=== PATIENT | male | born 1980 | race American Indian/Alaskan Native ===

== ENCOUNTER 2016-12-16 10:21 | Inpatient (IN) | payer OTHER ==
[2016-12-16 11:13] LABS: Basophils % (Auto) 0.5 % (0.0-1.8); Eosinophils % (Auto) 0.4 % (0.0-4.3); Hematocrit 49.8 % (35.5-45.6); Hemoglobin 16.4 gm/dl (11.8-15.2); Mean Corpuscular HGB Conc 33 % (32-34); Mean Corpuscular Hemoglobin 28 pg (28-32); Mean Corpuscular Volume 85 fl (84-94); Platelet Count 294 K/mm3 (140-440); Red Blood Count 5.89 M/mm3 (3.65-5.03); White Blood Count 11.3 K/mm3 (4.5-11.0)
[2016-12-16 11:30] LABS: Anion Gap 29 mmol/L; BUN/Creatinine Ratio 12.72; Blood Urea Nitrogen 14 mg/dL (9-20); Calcium 9.8 mg/dL (8.4-10.2); Carbon Dioxide 20 mmol/L (22-30); Chloride 82.5 mmol/L (98-107); Potassium 5.1 mmol/L (3.6-5.0); Sodium 126 mmol/L (137-145)
[2016-12-16] MEDS ORDERED: NACL 0.9% 1000 ML 1,000 ML IV ONE ×2 (11:50→14:01)
[2016-12-16 12:01] LABS: Glucose 777 mg/dL (75-100)
--- NOTE | 2016-12-16 12:08 | Emergency Department Report ---
HPI - General Chief Complaint: Chest Pain Time Seen by Provider: 12/16/16 11:47 - HPI HPI: This is a 36-year-old Afro-K[place] male who presents to the emergency department with complaint of some generalized weakness, frequent urination, increased thirst, palpitations and fatigue over the past few days. He complains of an occasional midsternal burning sensation but otherwise denies any significant pain. He denies any soreness of breath, nausea, vomiting, back pain or diaphoresis. He does not have any past medical history. Patient does have a history of weight loss with 35 pounds lost over the past few months but he equates it to quitting alcohol use. He denies any tobacco or illicit drug use or abuse. ED Past Medical Hx - Past Medical History Previous Medical History?: No - Surgical History Past Surgical History?: No - Social History Smoking Status: Never Smoker Substance Use Type: Alcohol - Medications Home Medications: Home Medications Medication Instructions Recorded Confirmed Last Taken Type Cyclobenzaprine [Flexeril 10mg] 10 mg PO TID PRN #20 tablet 02/03/15 Unknown Rx Ibuprofen [Motrin] 600 mg PO Q8H PRN #30 tablet 02/03/15 Unknown Rx ED Review of Systems ROS: Stated complaint: CHEST PAIN Other details as noted in HPI Comment: All other systems reviewed and negative Constitutional: weakness. denies: chills, fever Eyes: denies: eye pain, eye discharge, vision change ENT: denies: ear pain, throat pain Respiratory: denies: cough, shortness of breath, wheezing Cardiovascular: chest pain, palpitations. denies: edema Endocrine: increased thirst, increased urine Gastrointestinal: denies: abdominal pain, nausea, diarrhea Genitourinary: frequency. denies: dysuria Musculoskeletal: denies: back pain, joint swelling, arthralgia Skin: denies: rash, lesions Neurological: denies: headache, weakness, paresthesias Physical Exam - Physical Exam Vital Signs: Vital Signs 12/16/16 12/16/16 10:36 11:59 Temperature 98.0 F Pulse Rate 115 H Respiratory 18 18 Rate Blood Pressure 156/115 O2 Sat by Pulse 98 Oximetry Physical Exam: GENERAL: The patient is well-developed well-nourished. HEENT: Normocephalic. Atraumatic. Extraocular motions are intact. Patient has moist mucous membranes. Pupils equal reactive to light bilaterally. NECK: Supple. Trachea is midline. CHEST/LUNGS: Clear to auscultation. There is no respiratory distress noted. HEART/CARDIOVASCULAR: Regular. There is no tachycardia. There is no gallop rub or murmur. ABDOMEN: Abdomen is soft, nontender. Patient has normal bowel sounds. There is no abdominal distention. SKIN: There is no rash. There is no edema. There is no diaphoresis. NEURO: The patient is awake, alert, and oriented. The patient is cooperative. The patient has no focal neurologic deficits. The patient has normal speech. MUSCULOSKELETAL: There is no tenderness or deformity. There is no limitation range of motion. There is no evidence of acute injury. ED Course Vital Signs 12/16/16 12/16/16 10:36 11:59 Temperature 98.0 F Pulse Rate 115 H Respiratory 18 18 Rate Blood Pressure 156/115 O2 Sat by Pulse 98 Oximetry ED Medical Decision Making - Lab Data Result diagrams: 12/16/16 10:51 12/16/16 13:44 - EKG Data -: EKG Interpreted by Me EKG shows normal: sinus rhythm, axis, intervals, QRS complexes, ST-T waves (T- wave inversions to the inferior leads) Rate: tachycardia (109 bpm) - EKG Data When compared to previous EKG there are: previous EKG unavailable Interpretation: other (sinus tachycardia, T-wave inversions to the inferior leads) - Radiology Data Radiology results: image reviewed interpreted by me: Chest x-ray did not show any acute process. Heart is normal shape and size. No effusions. No pneumothorax. No signs of pneumonia seen. - Medical Decision Making 36-year-old male presents to the emergency department with complaint of polyuria , polydipsia, chest pains, weakness and fatigue. Found to have a blood sugar of almost 800. Other labs show hyponatremia due to his hyperosmolality/ hyperglycemia, beta hydroxybutyrate of greater than 30, bicarbonate of 20. While venous pH is on the low area of normal, I believe the patient has some early diabetic ketoacidosis in a patient with new onset diabetes mellitus. Patient was given IV fluid resuscitation and his blood sugar started to come down. The patient will be placed on a insulin drip to lower his gap and we will continue to give him IV fluid resuscitation. Regarding his chest pain, patient had an EKG that does not show any signs of ST elevation ID. First troponin negative. I have spoken to the admitting hospitalist, dr Garcia, who will either admit the patient for further evaluation and treatment or will consult and discharge if he deems fit. - Differential Diagnosis DKA, HHNK, ID, CHF Critical Care Time: No Critical care attestation.: If time is entered above; I have spent that time in minutes in the direct care of this critically ill patient, excluding procedure time. ED Disposition Clinical Impression: Diabetes mellitus, new onset Diabetic ketoacidosis Qualifiers: Diabetes mellitus type: other specified (including JHONATAN) Diabetes mellitus complication detail: without coma Qualified Code(s): E13.10 - Other specified diabetes mellitus with ketoacidosis without coma Hypertension Qualifiers: Hypertension type: essential hypertension Qualified Code(s): I10 - Essential ( primary) hypertension Disposition: OP ADMITTED IP TO THIS HOSP Is pt being admited?: Yes Does the pt Need Aspirin: Yes Condition: Stable Instructions: Diabetic Ketoacidosis (ED), Hypertension (ED) Referrals: PRIMARY CARE, [Primary Care Provider] - 3-5 Days Time of Disposition: 14:34
--- NOTE | 2016-12-16 13:15 | XRay Report ---
Chest 2 views: History: Chest pain. Findings: Normal cardiomediastinal silhouette. No consolidation, pneumothorax or pleural effusion. Impression: No acute cardiopulmonary findings.
[2016-12-16] MEDS ORDERED: D50W (25GM) IV PRN ×2 (13:39→15:16)
[2016-12-16] MEDS ORDERED: NovoLIN R 100 UNITS in NACL 0.9% 99 ML IV SCH (14:00)
[2016-12-16 14:06] LABS: Anion Gap 28 mmol/L; BUN/Creatinine Ratio 13.33; Blood Urea Nitrogen 12 mg/dL (9-20); Carbon Dioxide 16 mmol/L (22-30); Chloride 87.7 mmol/L (98-107); Potassium 4.5 mmol/L (3.6-5.0); Sodium 127 mmol/L (137-145)
[2016-12-16 14:33] LABS: Magnesium 2.3 mg/dL (1.7-2.3); Phosphorous 4.8 mg/dL (2.5-4.5)
[2016-12-16 14:34] LABS: Glucose 525 mg/dL (75-100)
[2016-12-16] MEDS ORDERED: BABY ASPIRIN PO ONE (14:34)
[2016-12-16] MEDS ORDERED: ZOFRAN IV PRN (15:15)
[2016-12-16] MEDS ORDERED: NORCO 5/325 PO PRN (15:15)
[2016-12-16] MEDS ORDERED: AMBIEN PO PRN (15:15)
[2016-12-16] MEDS ORDERED: TYLENOL PO PRN (15:15)
[2016-12-16] MEDS: NOVOLOG SUB-Q SCH ×2 (16:03→23:00)
[2016-12-16] MEDS ORDERED: BABY ASPIRIN ONE (16:36)
[2016-12-16 16:48] LABS: Anion Gap 30 mmol/L; Blood Urea Nitrogen 12 mg/dL (9-20); Carbon Dioxide 16 mmol/L (22-30); Chloride 93.1 mmol/L (98-107); Glucose 369 mg/dL (75-100); Potassium 5.4 mmol/L (3.6-5.0); Sodium 134 mmol/L (137-145)
[2016-12-16] MEDS ORDERED: NACL 0.9% 1000 ML 1,000 ML ONE (17:47)
[2016-12-16] MEDS: NACL 0.9% 1000 ML 1,000 ML IV SCH (18:11)
--- NOTE | 2016-12-16 18:27 | History and Physical Report ---
History of Present Illness Date of examination: 12/16/16 Date of admission: 12/16/16 17:18 Chief complaint: Weakness History of present illness: Patient is a 36 yo man without chronic medical problems who presents with 3-4 day history of weakness, fatigue, polyuria, polydipsia, polyphagia and substernal mild intermittent nonradiating chest pain that began 3-4 days ago. The chest pain felt like indigestion even taking aspirin with relief. Past History Past Medical History: other (as hpi) Past Surgical History: No surgical history Social history: full code, other (cocaine in the past). denies: smoking, alcohol abuse, prescription drug abuse, IV drug use Family history: hypertension (mother), other (father gout) Medications and Allergies Allergies Allergy/AdvReac Type Severity Reaction Status Date / Time No Known Allergies Allergy Verified 02/03/15 08:35 Home Medications Medication Instructions Recorded Confirmed Last Taken Type Cyclobenzaprine [Flexeril 10mg] 10 mg PO TID PRN #20 tablet 02/03/15 Unknown Rx Ibuprofen [Motrin] 600 mg PO Q8H PRN #30 tablet 02/03/15 Unknown Rx Active Meds: Active Medications Acetaminophen (Tylenol) 650 mg PO Q6H PRN PRN Reason: Non Cardiac Pain or Temp>100.5 Acetaminophen/Hydrocodone Bitart ([place] 5/325) 1 each PO Q4H PRN PRN Reason: Pain, Moderate (4-6) Dextrose (D50w (25gm)) 50 ml IV PRN PRN PRN Reason: Hypoglycemia Heparin Sodium (Porcine) (Heparin) 5,000 unit SUB-Q Q12HR [facility] Sodium Chloride (Nacl 0.9% 1000 Ml) 1,000 mls @ 125 mls/hr IV DIRECT [facility] Last Admin: 12/16/16 18:11 Dose: 125 mls/hr Insulin Aspart (Novolog) 0 units SUB-Q ACHS ELI PRN Reason: Protocol Last Admin: 12/16/16 16:03 Dose: 6 units Insulin Detemir (Levemir) 10 units SUB-Q QHS ELI Ondansetron HCl (Zofran) 4 mg IV Q4H PRN PRN Reason: Nausea And Vomiting Pantoprazole Sodium (Protonix) 40 mg PO QDAY [facility] Zolpidem Tartrate (Ambien) 5 mg PO QHS PRN PRN Reason: Sleep Exam - Constitutional Vitals: Temp Pulse Resp BP Pulse Ox 98.0 F 92 H 18 163/89 100 12/16/16 10:36 12/16/16 16:22 12/16/16 16:22 12/16/16 16:22 12/16/16 16:22 Results - Labs CBC & Chem 7: 12/16/16 10:51 12/16/16 15:58 Assessment and Plan Patient is a 36 yo man without chronic medical problems who presents with 3-4 day history of weakness, fatigue, polyuria, polydipsia, polyphagia and substernal mild intermittent nonradiating chest pain that began 3-4 days ago. The chest pain felt like indigestion even taking aspirin with relief. He also complains of unintentional weight loss 4 months. 1. New-onset diabetes mellitus borderline acidotic with ketones in the blood 2. Chest pain suspect GERD related: Treat with PPI, serial cardiac enzymes and stress test in a.m. 3. Electrolyte Imbalances, mild hyperkalemia and pseudohyponatremia
[2016-12-16] MEDS: LEVEMIR SUB-Q SCH (23:00)
--- NOTE | 2016-12-17 00:03 | Admit Criteria Form ---
Admission Criteria Documentation: DIABETES Clinical Indications for Admission to Inpatient Care (Place 'X' for any and all applicable criteria): Admission is indicated by presence of ALL (if I & II) or ANY ONE (if III or IV) of the following (1)(2)(3)(4): [ ]I. Diabetes is uncontrolled as indicated by ANY ONE of the following: [ ]a) Diabetic ketoacidosis as indicated by ALL of the following (8): [ ]i) Hyperglycemia (eg, plasma glucose greater than 200 mg/ dL (11.1 mmol/L)) [ ]ii) Acidosis (eg, arterial pH less than 7.30, serum bicarbonate level less than 15 mEq/L (mmol/L)) [ ]iii) Moderate ketonuria or ketonemia [ ]b) Hyperglycemic hyperosmolar state as indicated by ALL of the following(9)(10): [ ]i) Neurologic dysfunction (eg, stupor, coma, hemiparesis , seizure)(13) [ ]ii) Plasma glucose greater than 600 mg/dL (33.3 mmol/L) [ ]iii) Serum osmolality greater than 320 mOsm/kg (mmol/kg) [ ]c) Severe signs or symptoms secondary to hyperglycemia indicated by ANY ONE of the following: [ ]i) Altered mental status(10) [ ]ii) Significant hypovolemia or dehydration [ ]iii) Intractable nausea or vomiting [ ]iv) Unexplained fever or severe infection [ ]v) Severe electrolyte abnormality (eg, hypokalemia, hyperkalemia, hypernatremia) [ ]II. Management at other levels of care (Also use Diabetes: Observation Care as appropriate) is not feasible because of ANY ONE of the following: [ ]a) Condition was not adequately corrected with treatment at other levels of care. [ ]b) Treatment at other levels of care is not appropriate because of condition severity (eg, hyperosmolar coma). [X ]III. Contraindications and/or Inappropriate clinical situations for Observational Care in patients with Diabetes, when ANY ONE of the following is required: [ ]a) Patient require specific diagnostic workup or therapeutic intervention 22 [X ]b) Patient with abnormal vital signs or altered mental status 23 [ X]IV. General contraindications and/or Inappropriate clinical situations for Observational Care in patients with Diabetes, when ANY ONE of the following is required: [X ]a) Prediction of prolongation of LOS based on ANY ONE of the following may be considered as a contraindication for observational care 2, 3, 4, 5, 6, 7, 8, 9, 10, 11 [ ]i) Age > 65 yrs. [ ]ii) Patient arriving by ambulance [ ]iii) Patient with high acuity [X ]iv) Patient requiring vital sign monitoring [X ]v) Patient on IV medication [ ]b) Systolic blood pressures 180mmHg 3,12 [ ]c) Patient with altered mental status including delirium and other alteration of consciousness, (3) [ ]d) Patient whose discharge disposition will be to a senior living home or rehabilitation home should not be managed in Emergency Department Observation Unit. CMS rule requires 3 days hospital stay before such placement.3,13 [ ]e) Patient with failure to thrive due to broad array of etiologies 3,16,17 [ ]f) Inability to ambulate 3,14 Extended stay beyond goal length of stay may be needed for(3)(20): [ ]a) Treatment of precipitating causes [ ]b) Development of hypoglycemia [ ]c) Complications of treatment [ ]d) Complications of decompensated diabetes (eg, acute gastric dilatation, persistent metabolic or neurologic derangement) [ ]e) Active Comorbidities [ ]f) Older patients( 65 years or older) The original [employer] content created by [employer] has been revised. The portions of the content which have been revised are identified through the use of italic text or in bold,and [email or web address] has neither reviewed nor approved the modified material. All other unmodified content is copyright [employer]. Please see references footnoted in the original [facility] [facility] edition 2016 Admission Criteria Met: Yes
[2016-12-17] MEDS: NACL 0.9% 1000 ML 1,000 ML IV SCH ×3 (00:30→21:57)
[2016-12-17 06:18] LABS: Hematocrit 42.5 % (35.5-45.6); Hemoglobin 14.1 gm/dl (11.8-15.2); Mean Corpuscular HGB Conc 33 % (32-34); Mean Corpuscular Hemoglobin 28 pg (28-32); Mean Corpuscular Volume 83 fl (84-94); Platelet Count 218 K/mm3 (140-440); Red Blood Count 5.11 M/mm3 (3.65-5.03); Red Cell Distribution Width 12.8 % (13.2-15.2); White Blood Count 8.7 K/mm3 (4.5-11.0)
[2016-12-17 06:39] LABS: Anion Gap 21 mmol/L; BUN/Creatinine Ratio 13.75; Blood Urea Nitrogen 11 mg/dL (9-20); Calcium 8.3 mg/dL (8.4-10.2); Carbon Dioxide 21 mmol/L (22-30); Chloride 96.6 mmol/L (98-107); Cholesterol 148 mg/dL (50-199); Glucose 278 mg/dL (75-100); HDL Cholesterol 17 mg/dL (40-59); LDL Cholesterol,Direct 87 mg/dL (50-130); Potassium 3.9 mmol/L (3.6-5.0); Sodium 135 mmol/L (137-145); Triglycerides 221 mg/dL (2-149)
[2016-12-17] MEDS ORDERED: LEXISCAN IV ONE ×2 (07:59→08:20)
--- NOTE | 2016-12-17 09:40 | Event Note ---
Date: 12/17/16 Nuclear stress test completed. No complications Nuclear images show no significant areas of ischemia Risk for cardiac event with in the next year is less than 1% EF 52%
[2016-12-17] MEDS: HEPARIN SUB-Q SCH ×2 (09:49→21:58)
[2016-12-17] MEDS: PROTONIX PO SCH (09:49)
[2016-12-17] MEDS: NOVOLOG SUB-Q SCH ×4 (09:49→23:00)
--- NOTE | 2016-12-17 16:43 | Progress Note ---
Assessment and Plan Assessment and plan: 1. New onset diabetes With metabolic acidosis and ketones on admission Started on long-acting insulin along with SSI based on Accu-Cheks BS still elevated and AG opened Increase insulin dose; continue to adjust regimen Dietitian consulted for diabetic education 2. Hypertension BP constantly above upper limit of normal Start lisinopril as he has diabetes also Monitor BP 3. Dyslipidemia Triglycerides elevated, LDL within normal limits, but with low HDL Start statin 4. Chest pain Stress test negative Most likely secondary to GERD; started on PPI 5. Electrolyte abnormalities Mild hyperkalemia and pseudohyponatremia on admission due to DKA Resolved 6. Obesity Consult dietitian for diabetic education Counseled regarding importance of losing weight and lifestyle changes 7. DVT prophylaxis History Interval history: feeling better, but still c/o generalized weakness, fatique, polyuria Hospitalist Physical - Constitutional Vitals: Temp Pulse Resp BP Pulse Ox 98.3 F 92 H 20 144/87 96 12/17/16 16:27 12/17/16 16:27 12/17/16 16:27 12/17/16 16:27 12/16/16 20:00 General appearance: Present: no acute distress, obese - EENT Eyes: Present: PERRL, EOM intact. Absent: scleral icterus, conjunctival injection - Neck Neck: Present: supple, normal ROM. Absent: masses or JVD - Respiratory Respiratory effort: normal Respiratory: bilateral: CTA, negative: rales, rhonchi, wheezing - Cardiovascular Rhythm: regular Heart Sounds: Present: S1 & S2. Absent: systolic murmur - Extremities Extremities: no ischemia - Abdominal General gastrointestinal: soft, non-tender, non-distended, normal bowel sounds - Integumentary Integumentary: Present: warm, dry. Absent: jaundice, rash - Psychiatric Psychiatric: cooperative - Neurologic Neurologic: CNII-XII intact, no focal deficits Results - Labs CBC & Chem 7: 12/17/16 05:35 12/17/16 05:35 Labs: Laboratory Last Values WBC 8.7 K/mm3 (4.5-11.0) 12/17/16 05:35 RBC 5.11 M/mm3 (3.65-5.03) H 12/17/16 05:35 Hgb 14.1 gm/dl (11.8-15.2) 12/17/16 05:35 Hct 42.5 % (35.5-45.6) D 12/17/16 05:35 MCV 83 fl (84-94) L 12/17/16 05:35 MCH 28 pg (28-32) 12/17/16 05:35 MCHC 33 % (32-34) 12/17/16 05:35 RDW 12.8 % (13.2-15.2) L 12/17/16 05:35 Plt Count 218 K/mm3 (140-440) 12/17/16 05:35 Lymph % (Auto) 15.1 % (13.4-35.0) 12/16/16 10:51 [place] % (Auto) 7.8 % (0.0-7.3) H 12/16/16 10:51 Eos % (Auto) 0.4 % (0.0-4.3) 12/16/16 10:51 Baso % (Auto) 0.5 % (0.0-1.8) 12/16/16 10:51 Lymph # 1.7 K/mm3 (1.2-5.4) 12/16/16 10:51 [place] # 0.9 K/mm3 (0.0-0.8) H 12/16/16 10:51 Eos # 0.0 K/mm3 (0.0-0.4) 12/16/16 10:51 Baso # 0.1 K/mm3 (0.0-0.1) 12/16/16 10:51 Seg Neutrophils % 76.2 % (40.0-70.0) H 12/16/16 10:51 Seg Neutrophils # 8.6 K/mm3 (1.8-7.7) H 12/16/16 10:51 VBG pH 7.377 (7.320-7.420) 12/16/16 13:07 Sodium 135 mmol/L (137-145) L 12/17/16 05:35 Potassium 3.9 mmol/L (3.6-5.0) D 12/17/16 05:35 Chloride 96.6 mmol/L (98-107) L 12/17/16 05:35 Carbon Dioxide 21 mmol/L (22-30) L 12/17/16 05:35 Anion Gap 21 mmol/L 12/17/16 05:35 BUN 11 mg/dL (9-20) 12/17/16 05:35 Creatinine 0.8 mg/dL (0.8-1.5) 12/17/16 05:35 Estimated GFR > 60 ml/min 12/17/16 05:35 BUN/Creatinine Ratio 13.75 % 12/17/16 05:35 Glucose 278 mg/dL (75-100) H 12/17/16 05:35 POC Glucose 233 (70-105) H 12/17/16 06:09 Calcium 8.3 mg/dL (8.4-10.2) L 12/17/16 05:35 Phosphorus 4.8 mg/dL (2.5-4.5) H 12/16/16 13:44 Magnesium 2.3 mg/dL (1.7-2.3) 12/16/16 13:44 Troponin T < 0.010 ng/mL (0.00-0.029) 12/17/16 00:45 Triglycerides 221 mg/dL (2-149) H 12/17/16 05:35 Cholesterol 148 mg/dL (50-199) 12/17/16 05:35 LDL Cholesterol Direct 87 mg/dL (50-130) 12/17/16 05:35 HDL Cholesterol 17 mg/dL (40-59) L 12/17/16 05:35 Cholesterol/HDL Ratio 8.70 % 12/17/16 05:35 TSH 2.710 mlU/mL (0.270-4.200) 12/17/16 05:35 Ketones 36.6 mg/dL (0.2-2.8) H 12/16/16 13:07 - Imaging and Cardiology Chest x-ray: image reviewed (no acute abnormalities) Imaging and Cardiology: Stress test negative
[2016-12-17] MEDS: LEVEMIR SUB-Q SCH (23:00)
[2016-12-18 07:05] LABS: Anion Gap 25 mmol/L; BUN/Creatinine Ratio 12.85; Blood Urea Nitrogen 9 mg/dL (9-20); Calcium 8.4 mg/dL (8.4-10.2); Carbon Dioxide 18 mmol/L (22-30); Chloride 98.3 mmol/L (98-107); Glucose 306 mg/dL (75-100); Potassium 4.3 mmol/L (3.6-5.0); Sodium 137 mmol/L (137-145)
[2016-12-18] MEDS: NACL 0.9% 1000 ML 1,000 ML IV SCH (08:00)
[2016-12-18] MEDS: NOVOLOG SUB-Q SCH ×3 (08:16→17:30)
[2016-12-18] MEDS: PROTONIX PO SCH (09:55)
[2016-12-18] MEDS: HEPARIN SUB-Q SCH (09:55)
[2016-12-18] MEDS ORDERED: PNEUMOVAX 23 IM ONE (12:00)
[2016-12-18] MEDS ORDERED: FLUARIX QUAD 2016-2017(36 MOS+) IM ONE (12:00)
--- NOTE | 2016-12-18 12:38 | Discharge Summary ---
Providers - Providers Date of Admission: 12/16/16 17:18 Date of discharge: 12/18/16 Attending physician: DEDRA LAKE 12/17/16 16:37 Consult to Dietitian/Nutrition [CONS] Routine Physician Instructions: Reason For Exam: Reason for Consult: Diet education Primary care physician: [facility] Hospitalization Reason for admission: polyuria, polydipsia Condition: Stable Pertinent studies: Chest x-ray Stress test Hospital course: Patient is a 36 years old male with no past medical history who presented to the hospital complaining of polyuria, polydipsia, generalized weakness, fatigue. He was diagnosed with new onset diabetes, as well as hypertension and dyslipidemia. As his hemoglobin A1c was >13, he was started on insulin; diabetic education provided; extensively counseled regarding importance of lifestyle changes, losing weight, exercise, follow-up with PCP (information given) for monitoring and further adjustments of his regiments. Discharge diagnosis: 1. New onset diabetes With metabolic acidosis and ketones on admission Started on long-acting insulin along with SSI based on Accu-Cheks Dietitian consulted for diabetic education 2. Hypertension BP constantly above upper limit of normal Started on lisinopril as he has diabetes also 3. Dyslipidemia Triglycerides elevated, LDL within normal limits, but with low HDL Started on statin 4. Chest pain Stress test negative Most likely secondary to GERD; started on PPI 5. Electrolyte abnormalities Mild hyperkalemia and pseudohyponatremia on admission due to DKA Resolved 6. Obesity Dietitian consulted for diabetic education Counseled regarding importance of losing weight and lifestyle changes Disposition: DISCHARGED TO HOME OR SELFCARE Time spent for discharge: 35 minutes Core Measure Documentation - Palliative Care Palliative Care/ Comfort Measures: Not Applicable - Core Measures Any of the following diagnoses?: none Exam - Physical Exam Narrative exam: Patient seen and examined: - Constitutional Vitals: Temp Pulse Resp BP Pulse Ox 98.0 F 84 20 160/84 98 12/18/16 08:12 12/18/16 08:12 12/18/16 08:12 12/18/16 08:12 12/18/16 09:37 General appearance: Present: no acute distress, obese - EENT Eyes: Present: PERRL, EOM intact. Absent: scleral icterus, conjunctival injection - Neck Neck: Present: supple, normal ROM. Absent: masses or JVD - Respiratory Respiratory effort: normal Respiratory: bilateral: CTA, negative: rales, rhonchi, wheezing - Cardiovascular Rhythm: regular Heart Sounds: Present: S1 & S2. Absent: systolic murmur - Extremities Extremities: no ischemia - Abdominal General gastrointestinal: Present: soft, non-tender, non-distended, normal bowel sounds - Integumentary Integumentary: Present: warm, dry. Absent: jaundice, rash - Musculoskeletal Musculoskeletal: strength equal bilaterally - Psychiatric Psychiatric: cooperative - Neurologic Neurologic: CNII-XII intact, no focal deficits Plan Activity: advance as tolerated Diet: low cholesterol, low salt, diabetic Follow up with: PRIMARY CARE,MD [Primary Care Provider] - 3-5 Days [facility] [Outside] - 7 Days Prescriptions: AtorvaSTATin [Lipitor] 10 mg PO QHS #30 tablet Insulin NPH/Regular [NovoLIN 70/30] 8 unit SQ BIDDIAB #1 ml Lisinopril [Zestril TAB] 10 mg PO QDAY #30 tablet Pantoprazole [Protonix TAB] 40 mg PO QDAY #30 tablet
[2016-12-18] MEDS ORDERED: ZESTRIL PO SCH (13:00)
--- NOTE | 2016-12-18 13:37 | Treadmill Report ---
THALLIUM STRESS TEST LEFT VENTRICLE: Left ventricular chamber size is within normal. Perfusion study demonstrates homogeneous uptake of the tracer in all segments. No significant defects identified. Gated analysis demonstrates normal left ventricular systolic function, ejection fraction 52%. CONCLUSION: Normal myocardial perfusion study. JOB# [id number] CA/NTS
[2016-12-18 17:53] VITALS: BP 133/80
== END 2016-12-18 18:00 | disposition home or self-care (01) | DRG 638 ==
LOC: ED 10:21 → 3A 17:18
PROVIDERS: ADMIT Internal Medicine; ATTEND Internal Medicine
DX: E13.10 Other specified diabetes mellitus with ketoacidosis without coma (principal); E87.1 Hypo-osmolality and hyponatremia; I10 Essential (primary) hypertension; E87.5 Hyperkalemia; E78.5 Hyperlipidemia, unspecified; K21.9 Gastro-esophageal reflux disease without esophagitis; E66.9 Obesity, unspecified; Z68.32 Body mass index [BMI] 32.0-32.9, adult; Z82.49 Family history of ischemic heart disease and other diseases of the circulatory system; Z84.89 Family history of other specified conditions
CPT/HCPCS: 36415; 71020; 78452; 80048; 80061; 82010; 82805; 82962; 83036; 83735; 84100; 84443; 84484; 85025; 85027; 90686; 90732; 93005; 93010; 93017; A9502; J1644; J1815; J1818; J2785; J7030

== ENCOUNTER 2021-06-01 16:05 | Observation (INO) | payer SELFPAY ==
--- NOTE | 2021-06-01 16:19 | Event Note ---
ED Screening Note Date of service: 06/01/21 Time: 16:18 ED Screening Note: 41-year-old male patient with history of diabetes presents to the emergency department with complaints of chest pain and frequent urination. Symptoms have been ongoing intermittently for a few weeks, worse today. Patient has not taken medications for diabetes in over 1 year. Patient states he was previously hospitalized here for complications related to diabetes. Current symptoms are reminiscent of prior hospitalization. General: Awake, appropriately interactive, no acute distress. Neck: Supple. Full range of motion intact. Cardiovascular: Normal peripheral perfusion. Pulmonary: No respiratory distress. Patient is speaking normally without use of accessory muscles. Skin: No apparent rashes or lesions. Neurological: No facial asymmetry. Speech is clear. Follows commands. Patient is alert and oriented. Musculoskeletal: Moves all four extremities spontaneously with normal range of motion. Psych: Cooperative. Appropriate mood and affect. EKG, fingerstick glucose, labs, urinalysis, CXR ordered in triage. I have greeted and performed a focused rapid initial assessment of this patient. A comprehensive ED assessment and evaluation of the patient, analysis of all test results, and completion of the medical decision-making process will be conducted by additional ED providers. This initial assessment/diagnostic orders/clinical plan/treatment(s) is/are subject to change based on patients health status, clinical progression and re-assessment. Further treatment and workup at subsequent clinical provider's discretion. Patient/guardian urged not to elope from the ED as their condition may be serious if not clinically assessed and managed.
[2021-06-01 16:35] LABS: Basophils % (Auto) 0.3 % (0.0-1.8); Eosinophils # (Auto) 0.1 K/mm3 (0.0-0.4); Eosinophils % (Auto) 0.6 % (0.0-4.3); Hematocrit 47.3 % (35.5-45.6); Hemoglobin 15.8 gm/dl (11.8-15.2); Lymphocytes # (Auto) 1.9 K/mm3 (1.2-5.4); Lymphocytes % (Auto) 18.7 % (13.4-35.0); Mean Corpuscular HGB Conc 33 % (32-34); Mean Corpuscular Volume 85 fl (84-94); Monocytes # (Auto) 0.7 K/mm3 (0.0-0.8); Platelet Count 269 K/mm3 (140-440); Red Blood Count 5.58 M/mm3 (3.65-5.03)
[2021-06-01 16:52] LABS: Bilirubin,Urine NEG (Negative); Blood,Urine NEG (Negative); Color,Urine Colorless (Yellow); Mucus,Urine FEW /HPF; Protein,Urine <15 mg/dL mg/dL (Negative); RBC,Urine < 1.0 /HPF (0.0-6.0); Urobilinogen,Urine < 2.0 mg/dL (<2.0); WBC,Urine < 1.0 /HPF (0.0-6.0)
--- NOTE | 2021-06-01 16:56 | XRay Report ---
CHEST 2 VIEWS INDICATION / CLINICAL INFORMATION: chest pain. COMPARISON: None available. FINDINGS: SUPPORT DEVICES: None. HEART / MEDIASTINUM: No significant abnormality. LUNGS / PLEURA: No significant pulmonary or pleural abnormality. No pneumothorax. ADDITIONAL FINDINGS: No significant additional findings. IMPRESSION: 1. No acute findings. Signer Name: Fab Suarez MD Signed: 06/01/2021 4:51 PM Workstation Name: [id number]
[2021-06-01 17:09] LABS: BUN/Creatinine Ratio 16; Blood Urea Nitrogen 16 mg/dL (9-20)
[2021-06-01 17:10] LABS: Alanine Aminotransferase 35 units/L (7-56); Albumin 4.7 g/dL (3.9-5); Calcium 10.2 mg/dL (8.4-10.2)
[2021-06-02] MEDS ORDERED: ASPIRIN 325 MG TAB ONE (01:08)
[2021-06-02] MEDS ORDERED: LACTATED RINGERS 3,000 ML ONE (01:08)
[2021-06-02] MEDS ORDERED: PANTOPRAZOLE 40 MG INJ IV ONE ×2 (01:08→02:28)
[2021-06-02] MEDS ORDERED: INSULIN REGULAR, HUMAN 100 UNITS/1 ML ONE (01:19)
[2021-06-02] MEDS ORDERED: SODIUM CHLORIDE 0.9% 1000 ML 1,000 ML IV SCH (02:15)
[2021-06-02] MEDS ORDERED: ALBUTEROL 2.5 MG/3 ML NEBU IH PRN (02:24)
[2021-06-02] MEDS ORDERED: NALOXONE 0.4 MG/1 ML INJ IV PRN (02:24)
[2021-06-02] MEDS ORDERED: ONDANSETRON 4 MG/2 ML INJ IV PRN (02:24)
[2021-06-02] MEDS ORDERED: ACETAMINOPHEN 325 MG TAB PO PRN (02:24)
[2021-06-02] MEDS ORDERED: oxyCODONE /ACETAMINOPHEN 5-325MG TAB PO PRN (02:24)
[2021-06-02] MEDS ORDERED: HYDROmorphone 1 MG/1 ML INJ IV PRN (02:24)
[2021-06-02] MEDS ORDERED: INSULIN NPH/REGULAR 70/30 INJ SUB-Q ONE (02:30)
[2021-06-02 03:00] LABS: BUN/Creatinine Ratio 14; Blood Urea Nitrogen 14 mg/dL (9-20); Calcium 10.3 mg/dL (8.4-10.2); Hemolysis Index 4
--- NOTE | 2021-06-02 03:13 | History and Physical Report ---
History of Present Illness Date of examination: 06/02/21 Date of admission: 06/02/2021 Chief complaint: Abdominal pain, polyuria, polydipsia History of present illness: 41-year-old -[place] male with history of HLD, hypertension and diabetes, noncompliant with meds who presents [facility] ED with complaints of frequent urination, muscle cramps, increased thirst, and fatigue. Patient states, " it feels like my sugar is high". He admits to not taking any antigl ycemic meds to control his diabetes for the past year after being told that his blood sugar was under control by his medical provider. However, over the past 2 to 3 weeks he he has had use the bathroom more than usual, increased thirst, along with fatigue and muscle cramps. He states this usually happens when his blood sugar is high. Patient states that he has received his Covid vaccination. Denies fever, chills, cough, chest pain, shortness of breath, headache, nausea, vomiting, loss of smell, loss of taste, or recent sick contacts Review of medical record shows patient was last seen at [facility] in 12/29, at which time he was treated for DKA, GERD, and electrolyte abnormalities. Past History Past Medical History: diabetes, hypertension Past Surgical History: No surgical history Social history: full code Family history: hypertension, other (Gout-father) Medications and Allergies Allergies Allergy/AdvReac Type Severity Reaction Status Date / Time No Known Allergies Allergy Verified 06/01/21 16:13 Home Medications Medication Instructions Recorded Confirmed Last Taken Type Cyclobenzaprine [Flexeril 10 MG 10 mg PO TID PRN #20 tablet 02/03/15 Unknown Rx TAB] Ibuprofen [Motrin 600 MG tab] 600 mg PO Q8H PRN #30 tablet 02/03/15 Unknown Rx AtorvaSTATin 10 mg PO QHS #30 tablet 12/18/16 Unknown Rx Insulin NPH/Regular [NovoLIN 70/30] 8 unit SQ BIDDIAB #1 ml 12/18/16 Unknown Rx Pantoprazole [Protonix TAB] 40 mg PO QDAY #30 tablet 12/18/16 Unknown Rx lisinopriL [Zestril TAB] 10 mg PO QDAY #30 tablet 12/18/16 Unknown Rx Active Meds: Active Medications Acetaminophen (Acetaminophen 325 Mg Tab) 650 mg PO Q4H PRN PRN Reason: Pain MILD(1-3)/Fever >100.5/ARMENTA Albuterol (Albuterol 2.5 Mg/3 Ml Nebu) 2.5 mg IH Q3HRT PRN PRN Reason: Shortness Of Breath Docusate Sodium (Docusate Sodium 100 Mg Cap) 100 mg PO BID [facility] Heparin Sodium (Porcine) (Heparin 5,000 Unit/1 Ml Vial) 5,000 unit SUB-Q Q12HR ELI Hydromorphone HCl (Hydromorphone 1 Mg/1 Ml Inj) 0.5 mg IV Q3H PRN PRN Reason: Pain , Severe (7-10) Sodium Chloride (Nacl 0.9% 1000 Ml) 1,000 mls @ 125 mls/hr IV DIRECT ELI Insulin Human Lispro (Insulin Lispro 100 Unit/Ml) 0 unit SUB-Q Q4HR ELI; Protocol Naloxone HCl (Naloxone 0.4 Mg/1 Ml Inj) 0.1 mg IV Q2MIN PRN PRN Reason: Res Rate </= 8 or 02 SAT < 92% Ondansetron HCl (Ondansetron 4 Mg/2 Ml Inj) 4 mg IV Q6H PRN PRN Reason: Nausea And Vomiting Oxycodone/Acetaminophen (Oxycodone /Acetaminophen 5-325mg Tab) 1 tab PO Q6H PRN PRN Reason: Pain, Moderate (4-6) Pantoprazole Sodium (Pantoprazole 40 Mg Inj) 40 mg IV BID [facility] Sodium Chloride (Sodium Chloride 0.9% 10 Ml Flush Syringe) 10 ml IV BID [facility] Sodium Chloride (Sodium Chloride 0.9% 10 Ml Flush Syringe) 10 ml IV PRN PRN PRN Reason: LINE FLUSH Review of Systems All systems: negative (As noted in HPI) Exam - Physical Exam Narrative exam: Physical exam General appearance: Present: No acute distress, alert and oriented 3, adult male - EENT Eyes: Present: PERRL, EOM intact ENT: hearing intact, normal dentition - Neck Neck: Present: supple, normal ROM - Respiratory Respiratory effort: Non-labored Respiratory: Clear throughout - Cardiovascular Heart rate: 95 (bpm) Rhythm: Sinus Heart Sounds: Present: S1 & S2. Absent: rub, click - Extremities Extremities: no ischemia, pulses intact, - Peripheral Assessment Peripheral Pulses: within normal limits - Abdominal General gastrointestinal: Obese, soft, non-tender, normal bowel sounds - Integumentary Integumentary: Present: warm, dry - Musculoskeletal Musculoskeletal: Able to move all extremities -Neurological Neurological: CN II-XII intact - Psychiatric Psychiatric: cooperative - Constitutional Vitals: Temp Pulse Resp BP Pulse Ox 98.7 F 88 16 137/82 95 06/01/21 16:18 06/02/21 01:30 06/02/21 01:30 06/02/21 03:01 06/02/21 03:01 HEART Score - HEART Score Troponin: Troponin T < 0.010 ng/mL (0.00-0.029) 06/01/21 20:14 Results - Labs CBC & Chem 7: 06/01/21 16:21 06/02/21 01:30 Labs: Laboratory Last Values WBC 10.3 K/mm3 (4.5-11.0) 06/01/21 16:21 RBC 5.58 M/mm3 (3.65-5.03) H 06/01/21 16:21 Hgb 15.8 gm/dl (11.8-15.2) H 06/01/21 16:21 Hct 47.3 % (35.5-45.6) H 06/01/21 16:21 MCV 85 fl (84-94) 06/01/21 16:21 MCH 28 pg (28-32) 06/01/21 16:21 MCHC 33 % (32-34) 06/01/21 16:21 RDW 13.0 % (13.2-15.2) L 06/01/21 16:21 Plt Count 269 K/mm3 (140-440) 06/01/21 16:21 Lymph % (Auto) 18.7 % (13.4-35.0) 06/01/21 16:21 Nolan % (Auto) 7.0 % (0.0-7.3) 06/01/21 16:21 Eos % (Auto) 0.6 % (0.0-4.3) 06/01/21 16:21 Baso % (Auto) 0.3 % (0.0-1.8) 06/01/21 16:21 Lymph # (Auto) 1.9 K/mm3 (1.2-5.4) 06/01/21 16:21 Nolan # (Auto) 0.7 K/mm3 (0.0-0.8) 06/01/21 16:21 Eos # (Auto) 0.1 K/mm3 (0.0-0.4) 06/01/21 16:21 Baso # (Auto) 0.0 K/mm3 (0.0-0.1) 06/01/21 16:21 Seg Neutrophils % 73.4 % (40.0-70.0) H 06/01/21 16:21 Seg Neutrophils # 7.5 K/mm3 (1.8-7.7) 06/01/21 16:21 VBG pH 7.380 (7.320-7.420) 06/01/21 16:21 Sodium 133 mmol/L (137-145) L 06/02/21 01:30 Potassium 4.5 mmol/L (3.6-5.0) 06/02/21 01:30 Chloride 93.9 mmol/L (98-107) L 06/02/21 01:30 Carbon Dioxide 30 mmol/L (22-30) D 06/02/21 01:30 Anion Gap 14 mmol/L 06/02/21 01:30 BUN 14 mg/dL (9-20) 06/02/21 01:30 Creatinine 1.0 mg/dL (0.8-1.3) 06/02/21 01:30 Estimated GFR > 60 ml/min 06/02/21 01:30 BUN/Creatinine Ratio 14 % 06/02/21 01:30 Glucose 513 mg/dL (75-100) H* 06/02/21 01:30 POC Glucose 388 mg/dL (70-105) H 06/02/21 02:37 Calcium 10.3 mg/dL (8.4-10.2) H 06/02/21 01:30 Magnesium 2.10 mg/dL (1.7-2.3) 06/01/21 16:21 Total Bilirubin 0.30 mg/dL (0.1-1.2) 06/01/21 16:21 AST 43 units/L (5-40) H 06/01/21 16:21 ALT 35 units/L (7-56) 06/01/21 16:21 Alkaline Phosphatase 163 units/L (35-129) H 06/01/21 16:21 Troponin T < 0.010 ng/mL (0.00-0.029) 06/01/21 20:14 Total Protein 8.2 g/dL (6.3-8.2) 06/01/21 16:21 Albumin 4.7 g/dL (3.9-5) 06/01/21 16:21 Albumin/Globulin Ratio 1.3 % 06/01/21 16:21 Urine Color Colorless (Yellow) 06/01/21 Unknown Urine Turbidity Clear (Clear) 06/01/21 Unknown Urine pH 5.0 (5.0-7.0) 06/01/21 Unknown Ur Specific Dorothy 1.028 (1.003-1.030) 06/01/21 Unknown Urine Protein <15 mg/dl mg/dL (Negative) 06/01/21 Unknown Urine Glucose (UA) >=500 mg/dL (Negative) 06/01/21 Unknown Urine Ketones Tr mg/dL (Negative) 06/01/21 Unknown Urine Blood Neg (Negative) 06/01/21 Unknown Urine Nitrite Neg (Negative) 06/01/21 Unknown Urine Bilirubin Neg (Negative) 06/01/21 Unknown Urine Urobilinogen < 2.0 mg/dL (<2.0) 06/01/21 Unknown Ur Leukocyte Esterase Neg (Negative) 06/01/21 Unknown Urine WBC (Auto) < 1.0 /HPF (0.0-6.0) 06/01/21 Unknown Urine RBC (Auto) < 1.0 /HPF (0.0-6.0) 06/01/21 Unknown Urine Mucus Few /HPF 06/01/21 Unknown - Imaging and Cardiology Chest x-ray: report reviewed (No acute findings), image reviewed Assessment and Plan Assessment and plan: DM 2 with hyperglycemia -Uncontrolled -Reports not taking antiglycemic medications for the past year and a half -Complains of polyuria and polydipsia -BG 498 on presentation, now 388 -Continue POC BG monitoring -On scheduled and sliding scale insulin -We will need diabetic education reinforcement Acute on chronic epigastric abdominal pain -Patient had negative MPI stress testing with EF of 52% (12/2016) -Reports relief after receiving PPI -Patient was previously on PPI and reports not taking med -Resume Protonix twice daily -Monitor if patient still complains may consider cardiology consult Metabolic acidosis -Likely due to hyperglycemia -Receiving IVF -Monitor labs Hyperkalemia -Mild at 5.3 -Receiving IVF -Follow-up on repeat lab Pseudo-hyponatremia -At 128 -Neurochecks -Receiving IVF -Follow-up on repeat labs HTN -Monitor BP -Resume home hypertensive meds History HLD -Resume statin DVT PPI -On Heparin Advance Directives: No VTE prophylaxis?: Chemical, Mechanical Plan of care discussed with patient/family: Yes
[2021-06-02] MEDS ORDERED: INSULIN LISPRO 100 UNIT/ML SUB-Q SCH (06:00)
[2021-06-02 06:41] VITALS: BP 158/104
[2021-06-02] MEDS: INSULIN LISPRO 100 UNIT/ML SUB-Q SCH ×3 (08:11→17:04)
[2021-06-02 08:25] LABS: BUN/Creatinine Ratio 14; Blood Urea Nitrogen 11 mg/dL (9-20); Calcium 9.5 mg/dL (8.4-10.2); Hemolysis Index 14
[2021-06-02] MEDS ORDERED: LISINOPRIL 10 MG TAB PO SCH (10:00)
[2021-06-02] MEDS ORDERED: DOCUSATE SODIUM 100 MG CAP PO SCH (10:00)
[2021-06-02] MEDS ORDERED: HEPARIN 5,000 UNIT/1 ML VIAL SUB-Q SCH (10:00)
[2021-06-02] MEDS ORDERED: PANTOPRAZOLE 40 MG INJ IV SCH (10:00)
[2021-06-02] MEDS: INSULIN NPH/REGULAR 70/30 INJ SUB-Q SCH ×2 (10:57→17:04)
[2021-06-02] MEDS: metFORMIN 850 MG TAB PO SCH ×2 (10:57→17:04)
--- NOTE | 2021-06-02 12:27 | Electrocardiograph Report ---
[facility] Test Date: 2021-06-01 Test Time: 16:29:39 Pat Name: RONALD NEWTON Department: Room: [place] [address] Gender: M Geologist: : 1980 Requested By: KATHLEEN BLUNT Order Number: [id number] Reading MD: Juan Roman Measurements Intervals Sinclair Rate: 104 P: 60 NC: 153 QRS: 31 QRSD: 90 T: 12 QT: 322 QTc: 424 Interpretive Statements Sinus tachycardia Left atrial enlargement No previous ECG available for comparison Electronically Signed On 06-02-2021 12:27:29 EDT by Juan Roman
--- NOTE | 2021-06-02 12:37 | Electrocardiograph Report ---
[facility] Test Date: 2021-06-02 Test Time: 00:57:06 Pat Name: RONALD NEWTON Department: Room: [place] [address] Gender: M Automobile Mechanic Radiator: EDIE : 1980 Requested By: RODOLFO TRUJILLO Order Number: [id number] Reading MD: Juan Roman Measurements Intervals [place] Rate: 85 P: 70 ID: [id number] QRS: 57 QRSD: 94 T: -7 QT: 358 QTc: 425 Interpretive Statements Sinus rhythm Possible inferior infarct, age indeterminate Early repolarization ST abnormality Compared to ECG 06/01/2021 16:29:39 No significant change Electronically Signed On 06-02-2021 12:36:49 EDT by Juan Roman
--- NOTE | 2021-06-02 15:56 | Event Note ---
Date: 06/02/21 Patient seen and examined This is the 2nd visit after midnight 41-year-old -[place] male with history of HLD, hypertension and diabetes, noncompliant with meds who presents [facility] ED with complaints of frequent urination, muscle cramps, increased thirst, and fatigue. Review of medical record shows patient was last seen at [facility] in 12/29, at which time he was treated for DKA, GERD, and electrolyte abnormalities. Patient placed on metformin and NPH, BG still >400s. cont iv fluid, continue to adjust insulin doses as needed, repeat BMP in the morning It took me about 28 minutes to reevaluate and reasses this patient, discussed with RN/CM, review medical documents, lab results, imaging, medication list and placing order.
--- NOTE | 2021-06-02 16:54 | Discharge Summary ---
Providers - Providers Date of Admission: 06/02/21 02:24 Date of discharge: 06/02/21 Attending physician: SISSY SAEED Primary care physician: FRAME TABLE OPERATOR HELPER Hospitalization Condition: Stable Pertinent studies: Chest x-ray: No acute findings Hospital course: 41-year-old -[place] male with history of HLD, hypertension and diabetes, noncompliant with meds who presents [facility] ED with complaints of frequent urination, muscle cramps, increased thirst, and fatigue. Patient states that he has received his Covid vaccination. Denied fever, chills, cough, chest pain, shortness of breath, headache, nausea, vomiting, loss of smell, loss of taste, or recent sick contacts Review of medical record shows patient was last seen at [facility] in 12/29, at which time he was treated for DKA, GERD, and electrolyte abnormalities. Work-up in the ER showed sodium 128, potassium 5.3, blood glucose 526, A1c 9.9, AST 43 and alk phos 163. His troponin level x2 was normal. Patient was given iv fluid bolus in the ER, started on insulin NPH 10 units twice daily along with sliding scale, consistent carb diet. He was counselled for dietary and insulin regimen compliance. Patient blood glucose was stabilized and patient was then discharged home in stable condition with outpt f/u. Disposition: TO HOME OR SELFCARE Final Discharge Diagnosis (Prints w/discharge instructions): --Uncontrolled diabetes mellitus type 2 with hyperglycemia. --Acute on chronic epigastric abdominal pain, likely due to GERD. --Metabolic acidosis likely due to hyperglycemia, resolved. --Hyperkalemia, resolved. --Hyponatremia, likely due to hyperglycemia. --Hypertension, uncontrolled. --Hyperlipidemia. --Obesity Time spent for discharge: 34 minutes Core Measure Documentation - Palliative Care Palliative Care/ Comfort Measures: Not Applicable - Core Measures Any of the following diagnoses?: none Exam - Physical Exam Narrative exam: GENERAL: well-developed and well-nourished, obese -[place] male sitting on bed appeared to be in no discomfort. HEENT: Normocephalic. Atraumatic. No conjunctival congestion or icterus. Patient has moist mucous membranes. NECK: Supple. Trachea midline. CHEST/LUNGS: Clear to auscultated bilaterally, breathing nonlabored. No wheezes crackles or rhonchi. HEART/CARDIOVASCULAR: Regular in rate and rhythm. S1 and S2 positive. ABDOMEN: Abdomen is soft, nontender. Patient has normal bowel sounds. SKIN: There is no rash. Warm and dry. NEURO: No focal motor deficit. Follows command. MUSCULOSKELETAL: No joint effusion or tenderness. EXTRIMITY: No edema, no cyanosis or clubbing. PSYCH: Cooperative. - Constitutional Vitals: Temp Pulse Resp BP Pulse Ox 98.7 F 68 16 158/104 96 06/01/21 16:18 06/02/21 06:00 06/02/21 06:00 06/02/21 06:02 06/02/21 06:31 Plan Activity: advance as tolerated Weight Bearing Status: Weight Bear as Tolerated Diet: diabetic Special Instructions: record daily BP diary, record blood sugar diary Follow up with: PRIMARY CAREMD [Primary Care Provider] - 7 Days GILLES MOLINA MD [Staff Physician] - 7 Days Forms: Work/School Release Form(ED) Prescriptions: AtorvaSTATin 10 mg PO QHS #30 tablet metFORMIN [Glucophage] 850 mg PO BIDDIAB #60 tablet Insulin NPH/Regular [NovoLIN 70/30] 10 unit SQ BIDDIAB #1 ml Pantoprazole [Protonix TAB] 40 mg PO QDAY #30 tablet lisinopriL [Zestril TAB] 10 mg PO QDAY #30 tablet Other Discharge Orders: Glucometer (Amb) Location: None Selected Glucometer supplies[Amb] Location: None Selected
--- NOTE | 2021-06-04 06:29 | Emergency Department Report ---
ED General Adult HPI - General Chief complaint: Chest Pain Stated complaint: CHEST PAIN, FREQUENT URINATION, ELEVATED BP PUI?: No Source: patient, RN notes reviewed Mode of arrival: Ambulatory Limitations: No Limitations - History of Present Illness Initial comments: Please note that this chart was originally completed during downtime procedures. Therefore, electronic medical records were not available. Please reference downtime chart. Dc Fournier; date of 1980; date of service, 06/02/2021. The patient is a 41-year-old gentleman. He is not known to myself previously. He reports a history of hypertension, diabetes and high cholesterol. He is not take any medications at this time. He was diagnosed with type 2 diabetes while in [place] a few years ago. He presents to the ER today with complaints of frequent urination, muscle cramps, increased thirst, malaise, fatigue, "it feels like my sugar is high." This has been going on for 2 to 3 weeks. He also endorses intermittent epigastric burning, for about 2 weeks, which does not radiate to the back, arms or neck, not associate with vomiting, diaphoresis or exertional shortness of breath. He denies calf pain, calf swelling, travel, surgery, immobilization, DVT and pulmonary embolism risk factors. No personal or family history of ischemic heart disease, or DVT/pulmonary embolism that he is aware of. He has received his Covid vaccination. He denies loss of taste and smell. Symptoms constant. They do not radiate anywhere. They do not have exacerbating or relieving factors. Review of systems: Constitutional: Negative for fever. Positive for malaise. Negative for loss of taste and smell. Ocular: Negative for eye discharge. Ear nose and throat: Negative for epistaxis. Respiratory: Negative for cough. Cardiovascular: Positive for epigastric chest pain. Abdominal: Positive for epigastric abdominal pain. No vomiting, diarrhea, hematemesis or bright red blood per rectum. Genitourinary: Positive urinary frequency. No dysuria. Neurologic: Positive weakness. No numbness. No ataxia. Musculoskeletal: Positive cramping Skin: No rashes and lesions. Physical examination: Temperature 98.7 F. Blood pressure 149/100 mmHg. Pulse rate 108 bpm. Respiratory rate 20/min. O2 sat, 100% on room air. The patient appeared well nourished and normally developed. Vital signs as documented. Head exam is unremarkable. Normocephalic atraumatic No scleral icterus or corneal arcus noted. Neck is without jugular venous distension, no thyromegaly there are no meningeal signs, and the neck is nontender. . Lungs are clear to auscultation and percussion. There is reproducible central chest wall tenderness. There are no rales, rhonchi, or wheezes. Dc Fournier; date of 1980; date of service, 06/02/2021. . Rhythm is regular. First and second heart sounds normal. No murmurs, rubs or gallops. Abdominal exam reveals normal bowel sounds, no masses, no organomegaly and no aortic enlargement. There is no pulsatile abdominal mass. . 2+ pulses noted in the bilateral upper and lower extremities. There is no p alpable cord. negative Homans sign. Muscular compartments are soft. The pelvis is stable. No facial droop. Tongue midline. Extraocular movements intact bilaterally. Facial sensation intact to light touch in V1, V2, V3 distribution bilaterally. 5 and a 5 strength in 4 extremities. Sensation intact to light touch in 4 extremities. No skin redness, pus, streaking, erythema, or breakdown. Severity scale (0 -10): 3 - Related Data Previous Rx's Medication Instructions Recorded Last Taken Type AtorvaSTATin 10 mg PO QHS #30 tablet 06/02/21 Unknown Rx Insulin NPH/Regular [NovoLIN 70/30] 10 unit SQ BIDDIAB #1 ml 06/02/21 Unknown Rx Pantoprazole [Protonix TAB] 40 mg PO QDAY #30 tablet 06/02/21 Unknown Rx lisinopriL [Zestril TAB] 10 mg PO QDAY #30 tablet 06/02/21 Unknown Rx metFORMIN [Glucophage] 850 mg PO BIDDIAB #60 tablet 06/02/21 Unknown Rx Allergies Allergy/AdvReac Type Severity Reaction Status Date / Time No Known Allergies Allergy Verified 06/01/21 16:13 ED Review of Systems ROS: Stated complaint: CHEST PAIN, FREQUENT URINATION, ELEVATED BP Other details as noted in HPI Comment: Per HPI ED Past Medical Hx - Past Medical History Hx Diabetes: Yes Hx Asthma: No Hx COPD: No - Social History Smoking Status: Former Smoker - Medications Home Medications: Home Medications Medication Instructions Recorded Confirmed Last Taken Type AtorvaSTATin 10 mg PO QHS #30 tablet 06/02/21 Unknown Rx Insulin NPH/Regular [NovoLIN 70/30] 10 unit SQ BIDDIAB #1 ml 06/02/21 Unknown Rx Pantoprazole [Protonix TAB] 40 mg PO QDAY #30 tablet 06/02/21 Unknown Rx lisinopriL [Zestril TAB] 10 mg PO QDAY #30 tablet 06/02/21 Unknown Rx metFORMIN [Glucophage] 850 mg PO BIDDIAB #60 tablet 06/02/21 Unknown Rx ED Physical Exam - General Limitations: No Limitations General appearance: alert, in no apparent distress, obese - Head Head exam: Present: atraumatic, normocephalic - Eye Eye exam: Present: normal appearance, EOMI. Absent: nystagmus - ENT ENT exam: Present: normal exam, normal orophraynx, mucous membranes moist, normal external ear exam - Neck Neck exam: Present: normal inspection, full ROM. Absent: tenderness, meningismus - Respiratory Respiratory exam: Present: normal lung sounds bilaterally. Absent: respiratory distress, wheezes, rales, rhonchi, stridor, decreased breath sounds - Cardiovascular Cardiovascular Exam: Present: regular rate, normal rhythm, normal heart sounds. Absent: bradycardia, tachycardia, irregular rhythm, systolic murmur, diastolic murmur, rubs, gallop - GI/Abdominal GI/Abdominal exam: Present: soft. Absent: distended, tenderness, guarding, rebound, rigid, pulsatile mass - Rectal Rectal exam: Present: deferred - Extremities Exam Extremities exam: Present: normal inspection, full ROM, other (2+ pulses noted in the bilateral upper and lower extremities. There is no palpable cord. negative Homans sign. Muscular compartments are soft. The pelvis is stable.). Absent: pedal edema, calf tenderness - Back Exam Back exam: Present: normal inspection. Absent: tenderness, CVA tenderness (R), CVA tenderness (L), paraspinal tenderness, vertebral tenderness - Neurological Exam Neurological exam: Present: alert, oriented X3, normal gait, other (No facial droop. Tongue midline. Extraocular movements intact bilaterally. Facial sensation intact to light touch in V1, V2, V3 distribution bilaterally. 5 and a 5 strength in 4 extremities. Sensation intact to light touch in 4 extremities.). Absent: motor sensory deficit - Psychiatric Psychiatric exam: Present: anxious - Skin Skin exam: Present: warm, dry, intact, normal color. Absent: rash ED Course Vital Signs 06/01/21 06/02/21 06/02/21 16:18 00:16 00:30 Temperature 98.7 F Pulse Rate 108 H Respiratory 20 Rate Blood Pressure Blood Pressure 149/100 [Right] O2 Sat by Pulse 100 97 98 Oximetry 06/02/21 06/02/21 06/02/21 00:46 01:00 01:16 Temperature Pulse Rate Respiratory Rate Blood Pressure Blood Pressure [Right] O2 Sat by Pulse 95 97 97 Oximetry 06/02/21 06/02/21 06/02/21 01:30 01:46 02:00 Temperature Pulse Rate 88 Respiratory 16 Rate Blood Pressure 146/85 146/85 Blood Pressure 146/85 [Right] O2 Sat by Pulse 98 97 97 Oximetry 06/02/21 06/02/21 06/02/21 02:16 02:31 02:45 Temperature Pulse Rate Respiratory Rate Blood Pressure 146/85 140/81 Blood Pressure [Right] O2 Sat by Pulse 96 94 95 Oximetry 06/02/21 06/02/21 06/02/21 03:00 03:01 03:31 Temperature Pulse Rate 70 Respiratory Rate Blood Pressure 137/82 137/82 Blood Pressure [Right] O2 Sat by Pulse 95 96 Oximetry 06/02/21 06/02/21 06/02/21 04:00 04:01 05:00 Temperature Pulse Rate 76 75 Respiratory 15 Rate Blood Pressure 138/81 Blood Pressure [Right] O2 Sat by Pulse 95 Oximetry 06/02/21 06/02/21 06/02/21 05:01 05:31 06:00 Temperature Pulse Rate 68 Respiratory 16 Rate Blood Pressure Blood Pressure [Right] O2 Sat by Pulse 95 97 Oximetry 06/02/21 06/02/21 06:02 06:31 Temperature Pulse Rate Respiratory Rate Blood Pressure 158/104 Blood Pressure [Right] O2 Sat by Pulse 96 96 Oximetry ED Medical Decision Making - Lab Data Result diagrams: 06/01/21 16:21 06/02/21 06:17 Vital Signs 06/01/21 06/02/21 06/02/21 16:18 00:16 00:30 Temperature 98.7 F Pulse Rate 108 H Respiratory 20 Rate Blood Pressure Blood Pressure 149/100 [Right] O2 Sat by Pulse 100 97 98 Oximetry 06/02/21 06/02/21 06/02/21 00:46 01:00 01:16 Temperature Pulse Rate Respiratory Rate Blood Pressure Blood Pressure [Right] O2 Sat by Pulse 95 97 97 Oximetry 06/02/21 06/02/21 06/02/21 01:30 01:46 02:00 Temperature Pulse Rate 88 Respiratory 16 Rate Blood Pressure 146/85 146/85 Blood Pressure 146/85 [Right] O2 Sat by Pulse 98 97 97 Oximetry 06/02/21 06/02/21 06/02/21 02:16 02:31 02:45 Temperature Pulse Rate Respiratory Rate Blood Pressure 146/85 140/81 Blood Pressure [Right] O2 Sat by Pulse 96 94 95 Oximetry 06/02/21 06/02/21 06/02/21 03:00 03:01 03:31 Temperature Pulse Rate 70 Respiratory Rate Blood Pressure 137/82 137/82 Blood Pressure [Right] O2 Sat by Pulse 95 96 Oximetry 06/02/21 06/02/21 06/02/21 04:00 04:01 05:00 Temperature Pulse Rate 76 75 Respiratory 15 Rate Blood Pressure 138/81 Blood Pressure [Right] O2 Sat by Pulse 95 Oximetry 06/02/21 06/02/21 06/02/21 05:01 05:31 06:00 Temperature Pulse Rate 68 Respiratory 16 Rate Blood Pressure Blood Pressure [Right] O2 Sat by Pulse 95 97 Oximetry 06/02/21 06/02/21 06:02 06:31 Temperature Pulse Rate Respiratory Rate Blood Pressure 158/104 Blood Pressure [Right] O2 Sat by Pulse 96 96 Oximetry Lab Results 06/01/21 06/01/21 06/01/21 Range/Units 16:20 16:21 16:21 WBC 10.3 (4.5-11.0) K/mm3 RBC 5.58 H (3.65-5.03) M/mm3 Hgb 15.8 H (11.8-15.2) gm/dl Hct 47.3 H (35.5-45.6) % MCV 85 (84-94) fl MCH 28 (28-32) pg MCHC 33 (32-34) % RDW 13.0 L (13.2-15.2) % Plt Count 269 (140-440) K/mm3 Lymph % (Auto) 18.7 (13.4-35.0) % [place] % (Auto) 7.0 (0.0-7.3) % Eos % (Auto) 0.6 (0.0-4.3) % Baso % (Auto) 0.3 (0.0-1.8) % Lymph # (Auto) 1.9 (1.2-5.4) K/mm3 [place] # (Auto) 0.7 (0.0-0.8) K/mm3 Eos # (Auto) 0.1 (0.0-0.4) K/mm3 Baso # (Auto) 0.0 (0.0-0.1) K/mm3 Seg Neutrophils % 73.4 H (40.0-70.0) % Seg Neutrophils # 7.5 (1.8-7.7) K/mm3 VBG pH (7.320-7.420) Sodium 128 L (137-145) mmol/L Potassium 5.3 H (3.6-5.0) mmol/L Chloride 89.4 L (98-107) mmol/L Carbon Dioxide 20 L (22-30) mmol/L Anion Gap 24 mmol/L BUN 16 (9-20) mg/dL Creatinine 1.0 (0.8-1.3) mg/dL Estimated GFR > 60 ml/min BUN/Creatinine Ratio 16 % Glucose 498 H (75-100) mg/dL POC Glucose 526 H (70-105) mg/dL Hemoglobin A1c (4-6) % Calcium 10.2 (8.4-10.2) mg/dL Magnesium 2.10 (1.7-2.3) mg/dL Total Bilirubin 0.30 (0.1-1.2) mg/dL AST 43 H (5-40) units/L ALT 35 (7-56) units/L Alkaline Phosphatase 163 H (35-129) units/L Troponin T < 0.010 (0.00-0.029) ng/mL Total Protein 8.2 (6.3-8.2) g/dL Albumin 4.7 (3.9-5) g/dL Albumin/Globulin Ratio 1.3 % Urine Color (Yellow) Urine Turbidity (Clear) Urine pH (5.0-7.0) Ur Specific [place] (1.003-1.030) Urine Protein (Negative) mg/dL Urine Glucose (UA) (Negative) mg/dL Urine Ketones (Negative) mg/dL Urine Blood (Negative) Urine Nitrite (Negative) Urine Bilirubin (Negative) Urine Urobilinogen (<2.0) mg/dL Ur Leukocyte Esterase (Negative) Urine WBC (Auto) (0.0-6.0) /HPF Urine RBC (Auto) (0.0-6.0) /HPF Urine Mucus /HPF 06/01/21 06/01/21 06/01/21 Range/Units 16:21 20:14 Unknown WBC (4.5-11.0) K/mm3 RBC (3.65-5.03) M/mm3 Hgb (11.8-15.2) gm/dl Hct (35.5-45.6) % MCV (84-94) fl MCH (28-32) pg MCHC (32-34) % RDW (13.2-15.2) % Plt Count (140-440) K/mm3 Lymph % (Auto) (13.4-35.0) % [place] % (Auto) (0.0-7.3) % Eos % (Auto) (0.0-4.3) % Baso % (Auto) (0.0-1.8) % Lymph # (Auto) (1.2-5.4) K/mm3 [place] # (Auto) (0.0-0.8) K/mm3 Eos # (Auto) (0.0-0.4) K/mm3 Baso # (Auto) (0.0-0.1) K/mm3 Seg Neutrophils % (40.0-70.0) % Seg Neutrophils # (1.8-7.7) K/mm3 VBG pH 7.380 (7.320-7.420) Sodium (137-145) mmol/L Potassium (3.6-5.0) mmol/L Chloride (98-107) mmol/L Carbon Dioxide (22-30) mmol/L Anion Gap mmol/L BUN (9-20) mg/dL Creatinine (0.8-1.3) mg/dL Estimated GFR ml/min BUN/Creatinine Ratio % Glucose (75-100) mg/dL POC Glucose (70-105) mg/dL Hemoglobin A1c (4-6) % Calcium (8.4-10.2) mg/dL Magnesium (1.7-2.3) mg/dL Total Bilirubin (0.1-1.2) mg/dL AST (5-40) units/L ALT (7-56) units/L Alkaline Phosphatase (35-129) units/L Troponin T < 0.010 (0.00-0.029) ng/mL Total Protein (6.3-8.2) g/dL Albumin (3.9-5) g/dL Albumin/Globulin Ratio % Urine Color Colorless (Yellow) Urine Turbidity Clear (Clear) Urine pH 5.0 (5.0-7.0) Ur Specific [place] 1.028 (1.003-1.030) Urine Protein <15 mg/dl (Negative) mg/dL Urine Glucose (UA) >=500 (Negative) mg/dL Urine Ketones Tr (Negative) mg/dL Urine Blood Neg (Negative) Urine Nitrite Neg (Negative) Urine Bilirubin Neg (Negative) Urine Urobilinogen < 2.0 (<2.0) mg/dL Ur Leukocyte Esterase Neg (Negative) Urine WBC (Auto) < 1.0 (0.0-6.0) /HPF Urine RBC (Auto) < 1.0 (0.0-6.0) /HPF Urine Mucus Few /HPF 06/02/21 06/02/21 06/02/21 Range/Units 01:14 01:30 01:30 WBC (4.5-11.0) K/mm3 RBC (3.65-5.03) M/mm3 Hgb (11.8-15.2) gm/dl Hct (35.5-45.6) % MCV (84-94) fl MCH (28-32) pg MCHC (32-34) % RDW (13.2-15.2) % Plt Count (140-440) K/mm3 Lymph % (Auto) (13.4-35.0) % [place] % (Auto) (0.0-7.3) % Eos % (Auto) (0.0-4.3) % Baso % (Auto) (0.0-1.8) % Lymph # (Auto) (1.2-5.4) K/mm3 [place] # (Auto) (0.0-0.8) K/mm3 Eos # (Auto) (0.0-0.4) K/mm3 Baso # (Auto) (0.0-0.1) K/mm3 Seg Neutrophils % (40.0-70.0) % Seg Neutrophils # (1.8-7.7) K/mm3 VBG pH (7.320-7.420) Sodium 133 L (137-145) mmol/L Potassium 4.5 (3.6-5.0) mmol/L Chloride 93.9 L (98-107) mmol/L Carbon Dioxide 30 D (22-30) mmol/L Anion Gap 14 mmol/L BUN 14 (9-20) mg/dL Creatinine 1.0 (0.8-1.3) mg/dL Estimated GFR > 60 ml/min BUN/Creatinine Ratio 14 % Glucose 513 H* (75-100) mg/dL POC Glucose > 600 H (70-105) mg/dL Hemoglobin A1c 9.9 H (4-6) % Calcium 10.3 H (8.4-10.2) mg/dL Magnesium (1.7-2.3) mg/dL Total Bilirubin (0.1-1.2) mg/dL AST (5-40) units/L ALT (7-56) units/L Alkaline Phosphatase (35-129) units/L Troponin T (0.00-0.029) ng/mL Total Protein (6.3-8.2) g/dL Albumin (3.9-5) g/dL Albumin/Globulin Ratio % Urine Color (Yellow) Urine Turbidity (Clear) Urine pH (5.0-7.0) Ur Specific [place] (1.003-1.030) Urine Protein (Negative) mg/dL Urine Glucose (UA) (Negative) mg/dL Urine Ketones (Negative) mg/dL Urine Blood (Negative) Urine Nitrite (Negative) Urine Bilirubin (Negative) Urine Urobilinogen (<2.0) mg/dL Ur Leukocyte Esterase (Negative) Urine WBC (Auto) (0.0-6.0) /HPF Urine RBC (Auto) (0.0-6.0) /HPF Urine Mucus /HPF - EKG Data -: EKG Interpreted by Me EKG shows normal: sinus rhythm Rate: normal - EKG Data When compared to previous EKG there are: previous EKG unavailable 06/04/21 06:27 EKG #1, interpreted at 06/01/2021, 16: 4 0 p.m. Sinus rhythm, tachycardia, rate 104 bpm. Normal axis, normal intervals, high left ventricular voltage. Abnormal EKG. Not a STEMI. No prior for comparison. EKG #2, interpreted at 12: 57 AM, 06/02/2021 Sinus rhythm, 85 bpm. Normal axis, normal intervals. High left ventricular voltage. Early repolarization. Q waves in the inferior leads. Nonspecific T wave abnormalities. This is an abnormal EKG. This is not a STEMI. - Radiology Data Radiology results: pending, report reviewed, image reviewed CHEST 2 VIEWS INDICATION / CLINICAL INFORMATION: chest pain. COMPARISON: None available. Dc Fournier; date of 1980; date of service, 06/02/2021. FINDINGS: SUPPORT DEVICES: None. HEART / MEDIASTINUM: No significant abnormality. LUNGS / PLEURA: No significant pulmonary or pleural abnormality. No pneumothorax. ADDITIONAL FINDINGS: No significant additional findings. IMPRESSION: 1. No acute findings. Signer Name: Fab Suarez MD Signed: 06/01/2021 3:51 PM Workstation Name: [id number] - Medical Decision Making Differential diagnosis, including but not limited to: GERD, gastritis, hiatal hernia, pneumonia, dehydration, hyperglycemia, diabetic ketoacidosis, hyperosmolar state, noncompliance, obesity Assessment and plan: [id number] with 2 complaints. Complaint #1, polyuria, polydipsia, known history of type 2 diabetes and noncompliance. Laboratory studies demonstrate normal venous pH, trace urine ketones, hemoconcentration, hyperglycemia, pseudohyponatremia, anion gap of 24, with negative troponin. Start patient on 3 L of IV fluid. Give 10 units of insulin. Repeat basic metabolic panel. Check CK and magnesium. Admit patient to the medical service for metabolic acidosis and hyperglycemia. Complaint #2, epigastric abdominal pain. Troponin negative x1. Chest x-ray clear. Abdomen soft and benign, without rebound, guarding or peritoneal signs. Patient moderate risk for major adverse cardiac event as per heart score. I suspect GI pathology, given duration of symptoms, and vague nature. Furthermore, symptoms present since May 15. As per the [employer] clinical policy, acute myocardial infarction may be excluded with 1 set of troponin/cardiac enzymes if symptoms present for greater than 8 hours. Give patient aspirin. Have recommended admission to the medical service for the aforementioned. Patient is agreeable to this plan of care. Patient recreationally uses cocaine, and last ingested 2 weeks ago. He has not taken aspirin within the past 7 days. No recent cardiac risk ratification. No DVT or pulmonary embolism risk factors, low risk by Wells criteria, and tachycardia is resolved at this time. Equal pulses in the upper and Shantanu, Dc; date of 1980; date of service, 06/02/2021. lower extremities, unremarkable x-ray of the chest, no pulsatile abdominal mass, aortic disease is unlikely. Discussed patient's history, physical, laboratory studies and imaging studies with hospital physician, Dr. Mariela Main For the time being, patient will be admitted to the [facility] service, on remote telemetry. If repeat basic metabolic panel shows worsening of anion gap, or any other significant abnormality, medical team will up triage patient. Given normal venous pH, trace ketones in urine, we find it reasonable to treat this patient conservatively, without initiation of insulin drip at this time. Repeat EKG, CK, basic metabolic panel, magnesium level pending. Critical CARE time: 35 minutes. Critical care time includes multiple bedside reevaluations, interpretation of laboratory studies, radiology studies, time spent administering high-dose insulin to a patient with hyperglycemia, and metabolic acidosis. This does not include procedure time. Heart score: 4points Moderate Score (4-6 points) Risk of MACE of 12-16.6%. Clinical impression: Hyperglycemia, noncompliance, obesity, metabolic acidosis, epigastric abdominal pain Disposition: Admitted to this hospital. Aspirin ordered. Critical Care Time: Yes Critical care time in (mins) excluding proc time.: 35 Critical care attestation.: If time is entered above; I have spent that time in minutes in the direct care of this critically ill patient, excluding procedure time. ED Disposition Clinical Impression: Hyperglycemia, Obesity, Metabolic acidosis, Epigastric abdominal pain, Noncompliance Disposition: OP ADMIT IP TO THIS HOSP Is pt being admited?: Yes Does the pt Need Aspirin: No (Aspirin ordered on downtime form) Condition: Stable Heart Score - HEART Score History: Moderately suspicious EKG: Non-specific Age: < 45 Risk factors: > 3 risk factors or hx of atherosclerotic disease Troponin: < normal limit HEART Score: 4 - EKG Read Time Time EKG Completed: 16:40 EKG Read Time: 16:40 - Critical Actions Critical Actions: 4-6 pts:12-16.6% risk of adverse cardiac event. Should be admitted
== END 2021-06-02 17:30 | disposition home or self-care (01) ==
LOC: ED 16:05 → 4A 06-02 02:24
PROVIDERS: ADMIT Internal Medicine Geriatric Medicine; ATTEND Internal Medicine
DX: R07.89 Other chest pain (principal); E11.65 Type 2 diabetes mellitus with hyperglycemia; I10 Essential (primary) hypertension; E87.2 Acidosis; E87.5 Hyperkalemia; E87.1 Hypo-osmolality and hyponatremia; E78.5 Hyperlipidemia, unspecified; R10.13 Epigastric pain; R35.0 Frequency of micturition; Z79.4 Long term (current) use of insulin; Z91.19 Patient's noncompliance with other medical treatment and regimen
CPT/HCPCS: 36415; 71046; 80048; 80053; 81001; 82805; 82962; 83036; 83735; 84484; 85025; 93005; 96372; 96374; 99285; C9113; G0378; J1644; J7120; J1815